=== PATIENT | male | born 1995 | race Caucasian/White ===

== ENCOUNTER 2018-07-05 15:41 | Emergency (ER) | payer OTHER ==
[2018-07-05 16:07] LABS: #Basophils 0.1 thou/uL (0.0-0.2); #Eosinphils 0.2 thou/uL (0.0-0.7); #Lymphocytes 2.2 thou/uL (1.20-3.40); #Monocytes 0.6 thou/uL (0.11-0.59); #Neutrophils 8.2 thou/uL (1.40-6.50); %Basophils 0.8 % (0.0-1.0); %Eosinophils 1.5 % (0.0-10.0); %Lymphocytes 19.7 % (21.0-51.0); %Monocytes 5.6 % (0.0-10.0); %Neutrophils 72.4 % (42.0-75.0); Hemoglobin 16.1 g/dL (14.0-18.0); Mean Corpuscular HGB CONC 35.6 g/dL (32.0-36.0); Mean Corpuscular Hemoglobin 28.3 pg (27.0-31.0); Mean Corpuscular Volume 79.4 fL (78.0-98.0); Mean Platelet Volume 7.2 fL (7.4-10.4); Platelet Count 230 thou/uL (130-400); RBC Distribution Width 11.2 % (11.5-14.5); White Blood Cell (WBC) Count 11.3 thou/uL (4.8-10.8)
[2018-07-05 16:08] LABS: ALT (SGPT) 34 U/L (8-55); AST (SGOT) 75 U/L (5-34); Albumin 4.6 g/dL (3.5-5.0); Alkaline Phosphatase 99 U/L (40-150); Anion Gap 15 mmol/L (10-20); BUN (Urea Nitrogen) 15 mg/dL (8.9-20.6); Bilirubin, Total 0.5 mg/dL (0.2-1.2); Calc. Creatinine Clearance 0 mL/min (70-130); Calcium 9.8 mg/dL (7.8-10.44); Carbon Dioxide 27 mmol/L (22-29); Chloride 105 mmol/L (98-107); Estimated GFR-MDRD 87; Globulin 2.7 g/dL (2.4-3.5); Glucose 101 mg/dL (70-105); Lipase 24 U/L (8-78); Potassium 4.1 mmol/L (3.5-5.1); Protein, Total 7.3 g/dL (6.0-8.3); Sodium 143 mmol/L (136-145)
[2018-07-05] MEDS ORDERED: Ketorolac Tromethamine 30 MG/ML VIAL ONE (16:13)
--- NOTE | 2018-07-05 16:15 | CT ---
CT CERVICAL SPINE: 07/05/2018 TECHNIQUE: A spiral CT of the cervical spine was done following trauma. Axial slices were acquired and then cor onal and sagittal reconstructions were done. FINDINGS: No fracture, dislocation, or disk space narrowing is seen. The C1 to dens distance is normal, and th e soft tissues are normal in thickness. There is no sign of foramina or central canal stenosis at an y level. The surrounding soft tissues are unremarkable. There is mild straightening of the cervical spine, which could be due to muscle spasm. IMPRESSION: Other than loss of cervical lordosis, no acute findings. POS: HOME
--- NOTE | 2018-07-05 17:11 | CT ---
CT CHEST AND ABDOMEN AND PELVIS WITH CONTRAST: 07/05/2018 TECHNIQUE: A spiral CT of the chest and abdomen and pelvis was performed for evaluation following trauma. Axial slices were acquired from the apices of the lungs through the bottom of the pelvis, after the admini stration of IV contrast. Coronal and sagittal reconstructions of the same area, including the spine, were done as well. FINDINGS: THORAX: There are patchy infiltrative areas in each upper lobe, near the apex. They are more promin ent in the left upper lobe than the right. No gross fracture is identified. There is a very tiny lo cule of air in the soft tissues of the anterior chest wall on the right. There is also potentially a very tiny amount of pleural air at this location and maybe even a couple of fragments of bone that m ay have come from a rib or the side of the manubrium. There is certainly no large pneumothorax or si gnificant pleural effusion. The mediastinum shows no hematoma, mass, or adenopathy. The aorta is intact with no sign of dissecti on or aneurysm. There is no pericardial fluid. The lower lobes are clear. The thoracic spine appea rs intact. Certainly no large fractures are indicated. ABDOMEN AND PELVIS: The liver, spleen, pancreas, gallbladder, adrenal glands, kidneys, and abdominal aorta all appear normal. There is no sign of laceration or hematoma of any major organ. The bowel appears normal. There is no sign of free air or free fluid in the abdomen or pelvis. The pelvic portion of the exam shows no free fluid, mass, or other acute traumatic change. The lumba r spine and bony pelvis appear intact, as do the hips. IMPRESSION: 1. Bilateral upper lobe lung contusions, left more than right. 2. Very tiny locule of air seen in the soft tissues of the right anterior chest wall, beneath which there might be the tiniest amount of loculated air in the pleural space but, even if real, it is not currently significant. There may be a tiny cortical avulsion from the side of the manubrium in this location. The sternoclavicular joints appear symmetrical and show no sign of dislocation. 3. The remainder of the chest, abdomen, and pelvis shows no acute changes. All scans discussed with Dr. Kaiser at 1620 hours on 07/05/2018. CODE CR POS: HOME
== END 2018-07-05 17:10 | disposition home or self-care (01) ==
LOC: BURERS 15:41
DX: I26.99 Other pulmonary embolism without acute cor pulmonale (principal)
CPT/HCPCS: 71260; 72125; 74177; 80053; 83690; 85025; 96374; G0390; J1885